=== PATIENT | female | born 1965 | race Caucasian/White ===

== ENCOUNTER → 2016-07-30 | Outpatient (CLI) | payer BC | LOC: FIMAGING 15:05 | PROVIDERS: ATTEND Physical Medicine & Rehabilitation | DX: M51.34 Other intervertebral disc degeneration, thoracic region (principal) ==

== ENCOUNTER → 2016-11-26 | Outpatient (CLI) | payer BC ==
[~2016-11-26] MED LIST: GADOBUTROL 10 ML VIAL IVP ONE
== END ==
LOC: FIMAGING 15:11
PROVIDERS: ATTEND Internal Medicine Gastroenterology
DX: R10.12 Left upper quadrant pain (principal)
CPT/HCPCS: A9585

== ENCOUNTER → 2018-06-10 | Outpatient (CLI) | payer BC | LOC: FIMAGING 10:02 | PROVIDERS: ATTEND Otolaryngology | DX: M54.2 Cervicalgia (principal) ==